=== PATIENT | female | born 1995 | race Caucasian/White ===

== ENCOUNTER 2016-10-11 14:16 | Emergency (ER) | payer MEDICAID ==
[~2016-10-11] VITALS: Ht 175.3 cm; Wt 98.9 kg
[2016-10-11 14:16] VITALS: BP 125/78
--- NOTE | 2016-10-11 16:09 | NUR ---
Patient ambulated to [facility] to be evaluated as fast track by Dr. De Guzman.
--- NOTE | 2016-10-11 16:09 | NUR ---
PATIENT PRESENTS TO ED WITH C/O SORE THROAT AND BUG BITE TO RIGHT MEDIAL THIGH . PT STATES SHE'S HAD COLD S/S X2 DAYS AND BELIEVES SHE WAS BITTEN BY A BUG AT THAT SAME TIME . DENIES N/V/D; SKIN IS PINK/WARM/DRY; AAOX4 WITH EVEN AND STEADY GAIT; LUNGS CLEAR BL; HR EVEN AND REGULAR; PT DENIES ANY FEVER, CP, OR SOB AT THIS TIME; PATIENT STATES PAIN OF 7/10 AT THIS TIME; VSS. ER MD MADE AWARE OF PT STATUS.
--- NOTE | 2016-10-11 16:10 | NUR ---
Dr. De Guzman evaluating patient in [facility]
[2016-10-11 16:23] VITALS: BP 125/78
== END 2016-10-11 16:25 | disposition home or self-care (01) ==
LOC: MED 14:16
DX: J02.9 Acute pharyngitis, unspecified (principal); S70.361A Insect bite (nonvenomous), right thigh, initial encounter; J45.909 Unspecified asthma, uncomplicated; W57.XXXA Bitten or stung by nonvenomous insect and other nonvenomous arthropods, initial encounter; Y93.89 Activity, other specified; Y92.89 Other specified places as the place of occurrence of the external cause; Y99.8 Other external cause status

== ENCOUNTER 2020-12-20 07:51 | Emergency (ER) | payer MEDICAID ==
[~2020-12-20] VITALS: Ht 175.3 cm; Wt 122.9 kg
[2020-12-20 07:55] VITALS: BP 121/60
[2020-12-20] MEDS ORDERED: predniSONE 20 MG TAB PO ONE (08:15)
[2020-12-20] MEDS ORDERED: diphenhydrAMINE 50 MG CAP PO ONE (08:15)
[2020-12-20] MEDS ORDERED: BEN50 PO (08:18)
[2020-12-20] MEDS ORDERED: PRED20TA5 PO (08:18)
[2020-12-20 08:40] VITALS: BP 121/60
== END 2020-12-20 08:41 | disposition home or self-care (01) ==
LOC: MED 07:51
DX: L50.9 Urticaria, unspecified (principal); J45.909 Unspecified asthma, uncomplicated; Z79.899 Other long term (current) drug therapy
CPT/HCPCS: 99283; J7512; Q0163

== ENCOUNTER 2023-08-05 08:31 | Emergency (ER) | payer MEDICAID ==
[~2023-08-05] VITALS: Ht 167.6 cm; Wt 99.8 kg
[~2023-08-05 08:31] MED LIST: BEN50 PO; PRED20TA5 PO
[2023-08-05 08:32] VITALS: BP 130/81; PULSE 96; RESP 18; TEMP 98.1; O2SAT 99
[2023-08-05] MEDS ORDERED: PENI500T20 PO (08:59)
[2023-08-05] MEDS ORDERED: PRED50TA2 PO (08:59)
== END 2023-08-05 09:08 | disposition home or self-care (01) ==
LOC: MED 08:31
DX: K12.2 Cellulitis and abscess of mouth (principal); J45.909 Unspecified asthma, uncomplicated; Z79.899 Other long term (current) drug therapy
CPT/HCPCS: 87081; 99283

== ENCOUNTER 2024-02-10 09:20 | Emergency (ER) | payer MEDICAID ==
[~2024-02-10] VITALS: Ht 175.3 cm; Wt 99.8 kg
[~2024-02-10 09:20] MED LIST changes: +PENI500T20 PO; +PRED50TA2 PO
[2024-02-10 09:51] VITALS: BP 153/73; PULSE 99; RESP 20; TEMP 98.4; O2SAT 98
[2024-02-10 10:46] LABS: FLU A ANTIGEN negative (NEGATIVE); FLU B ANTIGEN negative (NEGATIVE)
[2024-02-10] MEDS ORDERED: BENZ200C4 PO (11:12)
[2024-02-10 11:19] VITALS: BP 145/66; PULSE 88; RESP 16; TEMP 98.4; O2SAT 98
== END 2024-02-10 11:19 | disposition home or self-care (01) ==
LOC: MED 09:20
DX: U07.1 COVID-19 (principal); J45.909 Unspecified asthma, uncomplicated; Z79.899 Other long term (current) drug therapy
CPT/HCPCS: 99283

== ENCOUNTER 2024-02-17 17:46 | Emergency (ER) | payer MEDICAID ==
[~2024-02-17] VITALS: Ht 175.3 cm; Wt 125.2 kg
[~2024-02-17 17:46] MED LIST changes: +BENZ200C4 PO
[2024-02-17 17:50] VITALS: BP 126/82; PULSE 84; RESP 16; TEMP 98.2; O2SAT 100
[2024-02-17] MEDS: IBUPROFEN 800 MG TAB PO ONE (18:42)
[2024-02-17 19:09] VITALS: BP 126/82; PULSE 84; RESP 16; TEMP 98.2; O2SAT 100
== END 2024-02-17 19:08 | disposition home or self-care (01) ==
LOC: MED 17:46
DX: S80.02XA Contusion of left knee, initial encounter (principal); R03.0 Elevated blood-pressure reading, without diagnosis of hypertension; J45.909 Unspecified asthma, uncomplicated; Z79.899 Other long term (current) drug therapy; W01.0XXA Fall on same level from slipping, tripping and stumbling without subsequent striking against object, initial encounter; Y92.89 Other specified places as the place of occurrence of the external cause; Y93.89 Activity, other specified; Y99.8 Other external cause status
CPT/HCPCS: 73562; 99283